=== PATIENT | female | born 1955 | race Caucasian/White ===

== ENCOUNTER → 2018-12-25 | Outpatient (CLI) | payer BC | END | disposition home or self-care (01) | LOC: PREOP 05:53 | PROVIDERS: ATTEND Specialist | DX: Z01.818 Encounter for other preprocedural examination (principal) ==

== ENCOUNTER 2019-01-01 07:25 | Day surgery (SDC) | payer BC ==
[~2019-01-01] VITALS: Ht 162 cm; Wt 90.9 kg
[~2019-01-01 07:25] MED LIST: ATEN50TA PO; LEVO112T55 PO; LEVO50TA6 PO
[2019-01-01] MEDS: TETRACAINE 0.5% OPHTH SOLN 4 ML BTL (SINGLE DOSE ONLY) OU PRN ×4 (07:40→08:06)
[2019-01-01 07:44] VITALS: BP 133/80
[2019-01-01] MEDS ORDERED: LIDOCAINE PF 1% 2 ML AMP IR PRN (07:45)
[2019-01-01] MEDS ORDERED: MOXIFLOXACIN OPHTH SOLN 5 MG/ML 0.3 ML SYRINGE OP ONE (07:45)
[2019-01-01] MEDS ORDERED: TIMOLOL MALEATE 0.5% 5 ML (TIMOPTIC) BTL OU PRN (07:45)
[2019-01-01] MEDS ORDERED: POVIDONE (BETADINE) OPHTH SOLN 5% 30 ML OP ONE (07:45)
[2019-01-01] MEDS: PHENYLEPHRINE 10% OPHTH (NEO-SYN) 5 ML BTL OU SCH ×3 (07:55→08:06)
[2019-01-01] MEDS: CYCLOPENTOLATE 1% (CYCLOGYL) 2 ML DROPS OP SCH ×3 (07:55→08:06)
[2019-01-01] MEDS ORDERED: MIDAZOLAM 2 MG/2 ML (VERSED) VIAL ONE (07:59)
--- NOTE | 2019-01-01 08:08 | Ophthalmologist Pre-Op Note ---
Pre-Operative Progress Note H&P Reviewed The H&P was reviewed, patient examined and no changes noted. Date H&P Reviewed: Jan 01, 2019 Time H&P Reviewed: 08:08 Pre-Op Dx Cataract, Right Eye ALBA ZHAO MD Jan 01, 2019 08:08 POS
[2019-01-01] MEDS ORDERED: acetaZOLAMIDE ER 500 MG CAP (DIAMOX SEQUELS) PO ONE (08:30)
--- NOTE | 2019-01-01 08:37 | Ophthalmology Operative Report ---
Cataract removal/placement IOL PREOPERATIVE DIAGNOSIS: Cataract Right Eye POSTOPERATIVE DIAGNOSIS: Cataract Right Eye PROCEDURE: Cataract removal and placement of posterior chamber implant, right eye SURGEON: Jun Zhao ANESTHESIA: Topical with sedation COMPLICATIONS: None ESTIMATED BLOOD LOSS: Minimal DESCRIPTION OF PROCEDURE: After proper informed consent was obtained, the patient, a 63 female, was taken to the Operating Room and the right eye was anesthetized with tetracaine. The right eye was then prepped and draped in the usual manner. A wire lid speculum was placed. A paracentesis was made at the left hand position. Preservative free lidocaine was injected into the anterior chamber followed by viscoelastic. A clear corneal incision was made in the temporal position. A capsulorrhexis was preformed and the central nuclear and cortical material were removed. The posterior capsule was polished and Samm 20.5 AU00T0 IOL was placed into the capsular bag. The residual viscoelastic was aspirated and balanced saline solution was injected into the anterior chamber. Moxifloxacin was injected into the anterior chamber. The wound was checked and found to be water tight. The patient tolerated the procedure well without complications. JUN ZHAO MD Jan 01, 2019 08:37 POS
[2019-01-01 08:45] VITALS: BP 126/84
--- NOTE | 2019-01-01 12:41 | Anesthesia-General Post-Op ---
MAC Patient Condition Mental Status/LOC: Same as Preop Cardiovascular: Satisfactory Nausea/Vomiting: Absent Respiratory: Satisfactory Pain: Controlled Complications: Absent Post Op Complications Complications None Follow Up Care/Instructions Patient Instructions None needed. Anesthesiology Discharge Order Discharge Order Patient is doing well, no complaints, stable vital signs, no apparent adverse anesthesia problems. No complications reported per nursing. RULA LIU CRNA Jan 01, 2019 12:41 POS
--- OUTSIDE RECORDS SUMMARY | 2019-01-24 21:24 | XMS REPORT | Continuity of Care Document ---
Author Organization Unknown POS Address Unknown SP Phone Unavailable SP Allergies Active Description Code Type Severity POS Reaction Onset Reported/Identified POS to Patient Clinical Status POS Yes codeine [id number] Drug Allergy Mild SP N/V 12/30/2018 SP Medications There is no data. 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, RIGHT EYE SP 01/01/2019 ALBA ZHAO MD Ot I10 SP (PRIMARY) HYPERTENSION SP 01/01/2019 ALBA ZHAO MD Ot Z80 .6 SP HISTORY OF LEUKEMIA SP 01/01/2019 ALBA ZHAO MD Ot Z88 .5 SP STATUS TO NARCOTIC AGENT STATUS SP 01/01/2019 ALBA ZHAO MD Ot Z90.49 SP ACQUIRED ABSENCE OF OTHER SPECIFIED PART SP 01/08/2019 ALBA ZHAO MD Ot E03 .9 SP UNSPECIFIED SP 01/08/2019 ALBA ZHAO MD Ot H25.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, RIGHT EYE SP 01/08/2019 ALBA ZHAO MD Ot I10 SP (PRIMARY) HYPERTENSION SP 01/08/2019 ALBA ZHAO MD Ot Z80 .6 SP HISTORY OF LEUKEMIA SP 01/08/2019 ALBA ZHAO MD Ot Z88 .5 SP STATUS TO NARCOTIC AGENT STATUS SP 01/08/2019 ALBA ZHAO MD Ot Z90.49 SP ACQUIRED ABSENCE OF OTHER SPECIFIED PART SP 01/14/2019 ALBA ZHAO MD Ot Z01.818 SP ENCOUNTER FOR OTHER PREPROCEDURAL EXAMIN SP 01/19/2019 ALBA ZHAO MD Ot E03 .9 SP UNSPECIFIED SP 01/19/2019 ALBA ZHAO MD Ot H25.12 SP AGE-RELATED NUCLEAR CATARACT, LEFT EYE SP 01/19/2019 ALBA ZHAO MD Ot Z80 .6 SP HISTORY OF LEUKEMIA SP 01/19/2019 ALBA ZHAO MD Ot Z90.49 SP ACQUIRED ABSENCE OF OTHER SPECIFIED PART SP Procedures There is no data. Results There is no data. Encounters ACCT No. Visit Date/Time Discharge Status POS Pt. Type Provider Facility Loc./Un it POS Complaint POS [id number] 01/15/2019 07:13:00 09:18:00 SP DIS Outpatient ALBA ZHAO MD Via [facility] CATARACT LEFT EYE SP [id number] 01/12/2019 05:39:00 14:57:00 SP DIS Outpatient ALBA ZHAO MD Via [facility] PREOP CATARACT LEFT EYE SP [id number] 01/01/2019 07:25:00 08:45:00 SP DIS Outpatient ALBA ZHAO MD Via [facility] CATARACT RIGHT EYE SP [id number] 12/25/2018 05:53:00 23:59:59 SP CLS Outpatient ALBA ZHAO MD Via [facility] PREOP CATARACT RIGHT EYE SP
== END 2019-01-01 08:45 | disposition home or self-care (01) ==
LOC: SDC 07:25
PROVIDERS: ATTEND Specialist
DX: H25.11 Age-related nuclear cataract, right eye (principal); E03.9 Hypothyroidism, unspecified; I10 Essential (primary) hypertension; Z88.5 Allergy status to narcotic agent; Z90.49 Acquired absence of other specified parts of digestive tract; Z80.6 Family history of leukemia

== ENCOUNTER 2019-01-12 05:39 | Outpatient (CLI) | payer BC ==
[~2019-01-12] VITALS: Ht 162 cm; Wt 90.9 kg
== END 2019-01-12 14:57 | disposition home or self-care (01) ==
LOC: PREOP 05:39
PROVIDERS: ATTEND Specialist
DX: Z01.818 Encounter for other preprocedural examination (principal)

== ENCOUNTER 2019-01-15 07:13 | Day surgery (SDC) | payer BC ==
[~2019-01-15] VITALS: Ht 162 cm; Wt 90.9 kg
[2019-01-15] MEDS ORDERED: LIDOCAINE PF 1% 2 ML AMP IR PRN (07:30)
[2019-01-15] MEDS ORDERED: MOXIFLOXACIN OPHTH SOLN 5 MG/ML 0.3 ML SYRINGE OP ONE (07:30)
[2019-01-15] MEDS ORDERED: POVIDONE (BETADINE) OPHTH SOLN 5% 30 ML OP ONE (07:30)
[2019-01-15] MEDS ORDERED: TIMOLOL MALEATE 0.5% 5 ML (TIMOPTIC) BTL OU PRN (07:30)
[2019-01-15] MEDS: TETRACAINE 0.5% OPHTH SOLN 4 ML BTL (SINGLE DOSE ONLY) OU PRN ×4 (07:35→08:01)
[2019-01-15 07:37] VITALS: BP 118/80
[2019-01-15 07:47] VITALS: BP 118/80
[2019-01-15] MEDS: CYCLOPENTOLATE 1% (CYCLOGYL) 2 ML DROPS OP SCH ×3 (07:51→08:01)
[2019-01-15] MEDS: PHENYLEPHRINE 10% OPHTH (NEO-SYN) 5 ML BTL OU SCH ×3 (07:51→08:01)
[2019-01-15] MEDS ORDERED: MIDAZOLAM 2 MG/2 ML (VERSED) VIAL ONE ×2 (08:05→09:01)
--- NOTE | 2019-01-15 08:15 | Ophthalmologist Pre-Op Note ---
Pre-Operative Progress Note H&P Reviewed The H&P was reviewed, patient examined and no changes noted. Date H&P Reviewed: Jan 15, 2019 Time H&P Reviewed: 08:15 Pre-Op Dx Cataract, Left Eye ALBA ZHAO MD Jan 15, 2019 08:15 POS
[2019-01-15] MEDS ORDERED: acetaZOLAMIDE ER 500 MG CAP (DIAMOX SEQUELS) PO ONE (08:30)
--- NOTE | 2019-01-15 09:11 | Ophthalmology Operative Report ---
Cataract removal/placement IOL PREOPERATIVE DIAGNOSIS: Cataract Left Eye POSTOPERATIVE DIAGNOSIS: Cataract Left Eye PROCEDURE: Cataract removal and placement of posterior chamber implant, left eye SURGEON: Jun Zhao ANESTHESIA: Topical with sedation COMPLICATIONS: None ESTIMATED BLOOD LOSS: Minimal DESCRIPTION OF PROCEDURE: After proper informed consent was obtained, the patient, a 63 female, was taken to the Operating Room and the left eye was anesthetized with tetracaine. The left eye was then prepped and draped in the usual manner. A wire lid speculum was placed. A paracentesis was made at the left hand position. Preservative free lidocaine was injected into the anterior chamber followed by viscoelastic. A clear corneal incision was made in the temporal position. A capsulorrhexis was preformed and the central nuclear and cortical material were removed. The posterior capsule was polished and an Samm 20.5 AU00T0 was placed into the capsular bag. The residual viscoelastic was aspirated and balanced saline solution was injected into the anterior chamber. Moxifloxacin was injected into the anterior chamber. The wound was checked and found to be water tight. The patient tolerated the procedure well without complications. JUN ZHAO MD Jan 15, 2019 09:11 POS
[2019-01-15 09:19] VITALS: BP 116/55
--- NOTE | 2019-01-15 13:05 | Anesthesia-General Post-Op ---
MAC Patient Condition Mental Status/LOC: Same as Preop Cardiovascular: Satisfactory Nausea/Vomiting: Absent Respiratory: Satisfactory Pain: Controlled Complications: Absent Post Op Complications Complications None Follow Up Care/Instructions Patient Instructions None needed. Anesthesiology Discharge Order Discharge Order Patient is doing well, no complaints, stable vital signs, no apparent adverse anesthesia problems. No complications reported per nursing. JACY MEAD CRNA Jan 15, 2019 13:05 POS
== END 2019-01-15 09:18 | disposition home or self-care (01) ==
LOC: SDC 07:13
PROVIDERS: ATTEND Specialist
DX: H25.12 Age-related nuclear cataract, left eye (principal); E03.9 Hypothyroidism, unspecified; Z80.6 Family history of leukemia; Z90.49 Acquired absence of other specified parts of digestive tract

== ENCOUNTER 2022-02-06 05:34 | Outpatient (CLI) | payer BC ==
[~2022-02-06] VITALS: Ht 162.5 cm; Wt 77.2 kg
[2022-02-07] MEDS ORDERED: ATEN25TA PO (14:07)
[2022-02-07] MEDS ORDERED: LEVO125C4 PO (14:07)
== END 2022-02-07 14:20 | disposition home or self-care (01) ==
LOC: PREOP 05:34
PROVIDERS: ATTEND Surgery
DX: Z01.818 Encounter for other preprocedural examination (principal)

== ENCOUNTER 2022-02-13 11:11 | Day surgery (SDC) | payer MEDICARE, OTHER ==
[2022-02-13] VITALS (11 sets, daily range): BP systolic 114–159; BP diastolic 53–89
[~2022-02-13] VITALS: Ht 162.5 cm; Wt 77.2 kg
[~2022-02-13 11:11] MED LIST changes: +ATEN25TA PO; +LEVO125C4 PO
[2022-02-13] MEDS ORDERED: SCOPOLAMINE 1.5 MG (TRANSDERM-SCOP) PATCH TOP ONE (12:00)
[2022-02-13] MEDS ORDERED: FAMOTIDINE 20MG/2ML IV (PEPCID) IV ONE (12:00)
[2022-02-13] MEDS ORDERED: ONDANSETRON 4 MG/2 ML (SDV) Z0FRAN IV ONE (12:00)
[2022-02-13] MEDS ORDERED: ceFAZolin INJECTION 2,000 MG ONE (12:11)
[2022-02-13] MEDS ORDERED: NS (IVPB) 50 ML ONE (12:11)
[2022-02-13] MEDS ORDERED: ceFAZolin INJECTION 2,000 MG in NS (IVPB) 50 ML IV ONE (12:30)
[2022-02-13] MEDS ORDERED: LACTATED RINGERS 1,000 ML IV PRN (12:30)
--- NOTE | 2022-02-13 13:45 | Progress Note-Pre Operative ---
Pre-Operative Progress Note Date H&P Reviewed: Feb 13, 2022 Time H&P Reviewed: 13:41 History & Physical: H&P Reviewed, Patient Examed, No changes noted Pre-Operative Diagnosis: Melanoma, Left elbow site marked LILIANA LEE DO Feb 13, 2022 13:45
[2022-02-13] MEDS ORDERED: LIDOCAINE PF 2% 5 ML (XYLOCAINE) VIAL ONE (13:51)
[2022-02-13] MEDS ORDERED: fentaNYL INJ 100 MCG/2 ML AMP ONE (13:51)
[2022-02-13] MEDS ORDERED: SEVOFLURANE (ULTANE) 15 ML INHAL SOLN ONE (13:51)
[2022-02-13] MEDS ORDERED: proPOfol 200 MG/20 ML (DIPRIVAN) VIAL IV ONE ×2 (13:51→15:42)
[2022-02-13] MEDS ORDERED: ONDANSETRON 4 MG/2 ML (SDV) Z0FRAN ONE (13:51)
[2022-02-13] MEDS ORDERED: MIDAZOLAM 2 MG/2 ML (VERSED) VIAL ONE (13:52)
[2022-02-13] MEDS ORDERED: BUP/EPI 0.25% 1:200,000 (MARCAINE) 30 ML VIAL ONE (14:31)
[2022-02-13] MEDS ORDERED: PROPOFOL INJECTION 50 ML IV ONE (15:42)
--- NOTE | 2022-02-13 16:01 | Anesthesia-General Post-Op ---
General Patient Condition Mental Status/LOC: Same as Preop Cardiovascular: Satisfactory Nausea/Vomiting: Absent Respiratory: Satisfactory Pain: Controlled Complications: Absent Post Op Complications Complications None Follow Up Care/Instructions Patient Instructions None needed. Anesthesia/Patient Condition Patient Condition Patient is doing well, no complaints, stable vital signs, no apparent adverse anesthesia problems. No complications reported per nursing. RULA LIU CRNA Feb 13, 2022 16:01
[2022-02-13] MEDS ORDERED: PROMETHAZINE INJ 25 MG/ML (PHENERGAN) AMP IVP ONE (16:15)
[2022-02-13] MEDS ORDERED: ONDANSETRON 4 MG/2 ML (SDV) Z0FRAN IVP PRN (16:15)
[2022-02-13] MEDS ORDERED: TRAM50TA3 PO (16:47)
[2022-02-13] MEDS ORDERED: ONDA4TAB11 SL (16:47)
--- NOTE | 2022-02-13 16:49 | Discharge Inst-Surgical ---
Discharge Inst-Surgical Depart Medication/Instructions New, Converted or Re-Newed RX: Transmitted to Pharmacy Patient Instructions Follow up Appt: Make appointment for 1 week. [phone] Instructions: No lifting greater than 20 pounds. No strenuous activity. May shower in 24 hours, no tub bath or soaking. Use incentive spirometer at home as directed. No Smoking Skin/Wound Care: May remove bandages in am. You need to leave the sutures in place and come in to the clinic to have them removed. Symptoms to Report: Appetite Changes, Extremity Discoloration, Numbness/Tingling, Swelling Increased, Bleeding Excessive, Eyesight Changes, Pain Increased, Urine Color Change, Constipation(Persistent), Fever over 101 degree F, Pain/Pressure in chest, Urinating Difficulty, Cough Up/Vomit Blood, Heart Beat Irreg/Pounding, Pain/Pressure in jaw, Cramps in feet or legs, Lightheadedness, Pain/Pressure in shoulder, Diarrhea(Persistent), Memory Changes Suddenly, Questions/Concerns, Weight gain consecutive days, Dizziness/Fainting, Nausea/Vomiting, Shortness of Breath, Weight gain over 2 pounds If questions or concerns contact your physician Or seek help at emergency department. Activity Activity as Tolerated: Yes Activity Instructions: Avoid Stress to Incision Driving Instructions: No Driving/Refer to Dr. Ni Discharge Diet: No Restrictions Diet After 24 Hours: Clear Liquid if Nauseous If Any Problems/Questions/Issu: Contact Your Physician, Go to Emergency Room Skin/Wound Care Infection Signs and Symptoms: Increased Redness, Foul Odor of Wound, Increased Drainage, Skin Itchy or Has a Rash, Increased Swelling, Temperature Above 101 F Bathing Instructions: Shower Stitches/[place]/Dermabond Dis: Care of Stitches LILIANA LEE DO Feb 13, 2022 16:49
--- NOTE | 2022-02-14 03:17 | OPERATIVE REPORT ---
DATE OF SERVICE: 02/13/2022 PREOPERATIVE DIAGNOSIS: Melanoma of left elbow. POSTOPERATIVE DIAGNOSIS: Melanoma of left elbow, pending pathology. PROCEDURE: Excision of melanoma, wide excision 2.8 cm x 7.2 cm. SURGEON: Uriel Amezcua DO TECHNICAL SALES ENGINEER: None. ANESTHESIA: LMA. SPECIMEN: Melanoma from left elbow with surrounding skin. Blood LOSS: Scant. FLUIDS: Per anesthesia. POSTOPERATIVE CONDITION: Stable. INDICATIONS FOR PROCEDURE: The patient is a 66-year-old female who had a biopsy performed on the left elbow, it turned out to be melanoma. She needed a wide excision, it was not deep enough that she needed sentinel node biopsy. FINDINGS: The patient had a melanoma just above the left elbow, removed with at least 1 cm margins. It measured 2.8 cm wide x about a 7.2 cm long. DESCRIPTION OF PROCEDURE: After informed consent was obtained, the patient was brought to the operating room. She was placed on the table in the right lateral decubitus position. Left arm was placed across the table. She was then sterilely prepped and draped in normal fashion. Local lidocaine was used to infiltrate the skin, had marked 1 cm to either side of the melanoma in a transverse direction and then lengthened it by 3 to be able to create a nice closure. This area was infiltrated with local and then made an incision with 15 blade, carried down through the skin into the subcutaneous tissue, had drawn on at this elliptical incision, carried down through the skin into the subcutaneous tissue was then deepened to subcutaneous tissue with Bovie electrocautery, going down and removed this en bloc, placed in one short stitch superiorly at the 12 o'clock position, 1 long stitch laterally at the 3 o'clock position. I then did some undermining of the skin just a little bit to be able to bring the edges together and then obtained hemostasis using Bovie electrocautery, closed the incision with 3-0 Prolene in standard vertical mattress suture and then a running baseball stitch to help keep the skin closed because it was an area of high use and stretching. Area was cleaned and dried. Dressing placed. The patient tolerated the procedure. Sponge and needle count correct at the end of the case. Job ID: [id number] DocumentID: [id number] Dictated Date: 02/13/2022 20:34:28 Cardiopulmonary Technologist Chief Date: 02/14/2022 03:14:00 Dictated By: URIEL AMEZCUA DO
== END 2022-02-13 17:50 | disposition home or self-care (01) ==
LOC: SDC 11:11
PROVIDERS: ATTEND Surgery
DX: C43.62 Malignant melanoma of left upper limb, including shoulder (principal); E66.9 Obesity, unspecified; Z68.29 Body mass index [BMI] 29.0-29.9, adult
CPT/HCPCS: 87081

== ENCOUNTER 2022-02-27 14:14 | Outpatient (RCR) | payer MEDICARE, OTHER ==
[~2022-02-27 14:14] MED LIST changes: +ONDA4TAB11 SL; +TRAM50TA3 PO
== END 2022-03-02 | disposition home or self-care (01) ==
LOC: ONC 14:14
PROVIDERS: ATTEND Internal Medicine Hematology & Oncology
DX: C43.62 Malignant melanoma of left upper limb, including shoulder (principal)
CPT/HCPCS: 99204

== ENCOUNTER 2022-05-21 13:10 | Outpatient (RCR) | payer MEDICARE, OTHER | END 2022-05-31 | disposition home or self-care (01) | LOC: ONC 13:10 | PROVIDERS: ATTEND Internal Medicine Hematology & Oncology | DX: C43.9 Malignant melanoma of skin, unspecified (principal) ==

== ENCOUNTER 2022-08-20 12:56 | Outpatient (RCR) | payer MEDICARE, OTHER | END 2022-08-30 | disposition home or self-care (01) | LOC: ONC 12:56 | PROVIDERS: ATTEND Internal Medicine Hematology & Oncology | DX: C43.9 Malignant melanoma of skin, unspecified (principal) ==

== ENCOUNTER 2022-10-01 17:06 | Emergency (ER) | payer MEDICARE, OTHER ==
[~2022-10-01] VITALS: Ht 162.6 cm; Wt 91.6 kg
[2022-10-01 17:20] VITALS: BP 141/83
--- NOTE | 2022-10-01 17:21 | ED GI ---
General Chief Complaint: Abdominal/GI Problems Stated Complaint: NO BOWEL MOVEMENT FOR 12 DAYS Source of Information: Patient History of Present Illness Date Seen by Provider: Oct 01, 2022 Time Seen by Provider: 17:09 Initial Comments 67-year-old female presenting with complaints of no bowel movement for 12 days. She is just started Victoza approximately 2 weeks ago. She has a remote history of bowel obstruction after surgery over 20 years ago. She has been taking stool softeners and was doing pre and probiotics but has not had a bowel movement for 12 days. She states that she is still passing some gas. She has no abdominal pain, no pain with urination, no vomiting. She was having some mild nausea today. She called the clinic to check in with them about her bowel movements and they advised her to go straight to the emergency department since they felt that she had a bowel obstruction. Associated Symptoms: No Back Pain, No Chest Pain, No Diaphoresis, No Fev er/Chills, No Fatigue, No Headache, No Heartburn, No Nausea/Vomiting, No Rash, No Shortness of Air, No Swelling/Mass in Abdomen, No Syncope, No Weakness Allergies and Home Medications Allergies Coded Allergies: codeine (Verified Allergy, Mild, N/V, 02/07/22) levofloxacin (Verified Allergy, Unknown, 02/13/22) EXTREME BURNING AND MADE VEINS BRIGHT RED, CAN TOLERATE PO LEVAQUIN- PER PATIENT Patient Home Medication List Home Medication List Reviewed: Yes Atenolol (Atenolol) 25 Mg Tablet, 25 MG PO BID, (Reported) Entered as Reported by: STEVEN KELLY on 02/07/22 140 Levothyroxine Sodium (Levothyroxine) 125 Mcg Capsule, 125 MCG PO DAILY, (Reported) Entered as Reported by: STEVEN KELLY on 02/07/22 1407 Ondansetron (Ondansetron Odt) 4 Mg Tab.rapdis, 4 MG SL Q4H PRN for NAUSEA/VOMITING Prescribed by: LILIANA LEE on 02/13/22 164 Tramadol HCl (Tramadol HCl) 50 Mg Tablet, 50 MG PO Q8H Prescribed by: LILIANA LEE on 02/13/22 164 Review of Systems Review of Systems Constitutional: No chills, No fever EENTM: No Symptoms Reported Respiratory: No Symptoms Reported Cardiovascular: No Symptoms Reported Gastrointestinal: Denies Abdomen Distended, Denies Abdominal Pain, Denies Blood Streaked Stools; Constipated; Denies Diarrhea, Denies Difficulty Swallowing; Nausea (just started today); Denies Poor Appetite, Denies Poor Fluid Intake, Denies Rectal Bleeding, Denies Vomiting Genitourinary: No Symptoms Reported Musculoskeletal: no symptoms reported Skin: no symptoms reported Psychiatric/Neurological: No Symptoms Reported Endocrine: No Symptoms Reported Past Qccayzc-Prtbhe-Bxakna Hx Immunizations Up To Date First/Initial COVID19 Vaccinat: 2020 Second COVID19 Vaccination Levi: 2021 Seasonal Allergies Seasonal Allergies: No Past Medical History Surgery/Hospitalization HX: Bowel obstruction after abdominal surgery in her 40s Surgeries: Yes Gallbladder, Thyroidectomy Respiratory: Yes Sleep Apnea Currently Using CPAP: No Currently Using BIPAP: No Cardiac: No Neurological: No Genitourinary: No Gastrointestinal: No Musculoskeletal: No Endocrine: No Hypothyroidsim HEENT: Yes (GLASSES) Cancer: Yes Melanoma What Type of Treatment Did You: Surgical Intervention Psychosocial: No Integumentary: Yes Recent Skin Changes Blood Disorders: Yes (HX OF BLOOD CLOT "DUE TO ANESTHESIA") Physical Exam Vital Signs Vital Signs - First Documented 10/01/22 17:20 Temp 36.3 Pulse 79 Resp 18 B/P (MAP) 141/83 (102) Pulse Ox 97 O2 Delivery Room Air Capillary Refill : Height/Weight/BMI Height: '" Weight: lbs. oz. kg; 29.23 BMI Method: General Appearance: WD/WN, no apparent distress Respiratory: chest non-tender, lungs clear, normal breath sounds, no respiratory distress, no accessory muscle use Cardiovascular: normal peripheral pulses, regular rate, rhythm Gastrointestinal: normal bowel sounds, non tender, soft, no pulsatile mass Neurologic/Psychiatric: alert, oriented x 3 Skin: normal color, warm/dry Progress/Results/Core Measures Results/Orders My Orders Orders - AYAKA PANCHAL MD Ct Abdomen/Pelvis Wo (10/01/22 17:11) Vital Signs/I&O 10/01/22 17:20 Temp 36.3 Pulse 79 Resp 18 B/P (MAP) 141/83 (102) Pulse Ox 97 O2 Delivery Room Air Progress Progress Note #1: Progress Note Potential diagnosis of constipation, bowel obstruction, slow transit constipatio n. Obtain noncontrast CT scan of the abdomen and pelvis to evaluate for how much stool is present and looking for fecal impaction or obstruction. Progress Note #2: Time: 17:28 Progress Note On my personal review and interpretation of the CT scan of the abdomen and pelvis without IV contrast I did not appreciate any acute bowel obstruction. She had increased stool and gas throughout her bowels. There was also no rectal fecal impaction. Awaiting radiology over read on the CT scan but will likely recommend stimulant laxatives since she has already been trying prebiotic's, probiotics, prunes, prune juice, increase fiber and stool softeners without having a bowel movement. 1746 I have reviewed the radiologist report on the CT scan abdomen pelvis without contrast. The agreed she had moderate to large amount of stool load for constipation but did not show obstruction or mass. Will discharge to home and encourage patient to try taking MiraLAX or a stimulant laxative to help get her bowels to move. She could take the MiraLAX 17 g mixed in 8 ounces of juice or water drink of her choice at least once a day. She could also continue to do that. Probiotics as well as increased fiber. Counseled to check back with the clinic if continuing to have concerns. Diagnostic Imaging Diagonstic Imaging: CT Plain Films/CT/US/NM/MRI: abdomen, pelvis Comments NAME: KAYCEE VILLANUEVA [facility] REC#: [id number] PT STATUS: REG ER : 1955 PHYSICIAN: AYAKA PANCHAL MD ADMIT DATE: 10/01/22/ER FS Draft Date of Exam:10/01/22 CT ABDOMEN/PELVIS WO PROCEDURE: CT abdomen and pelvis without contrast. TECHNIQUE: Multiple contiguous axial images were obtained through the abdomen and pelvis without the use of intravenous contrast. Auto Exposure Controls were utilized during the CT exam to meet ALARA standards for radiation dose reduction. INDICATION: Constipation. No prior studies are available for comparison. FINDINGS: Lung bases are clear of acute infiltrates. The liver is unremarkable. Gallbladder is surgically absent. There is no biliary ductal dilatation. The pancreas and spleen are unremarkable. No adrenal mass is detected. No renal calculi are seen. There is no hydronephrosis. Low-attenuation lesion in the lower pole of the left kidney is too small to characterize but may represent a cyst. The aorta is nonaneurysmal. The small and large bowel loops are nonobstructed. There is moderate stool in the colon. The appendix is visualized in the right lower quadrant and appears unremarkable. No free fluid or fluid collection is seen. The uterus and bladder are unremarkable. IMPRESSION: Moderate stool load in the colon, correlate for constipation. The study is otherwise unremarkable. Dictated on workstation # [id number] Dict: 10/01/22 173 Trans: 10/01/221736 [id number] Interpreted by: TAMMI CHUNG MD Electronically signed by: Reviewed: Reviewed by Me Departure Impression Primary Impression: Constipation due to slow transit Disposition: HOME, SELF-CARE Condition: Stable Departure-Patient Inst. Decision time for Depature: 17:48 Referrals: KATHIE GONZALES APRN (PCP/Family) Primary Care Physician Patient Instructions: Constipation, Adult ED, Dealing with Constipation from the Drugs You Take Add. Discharge Instructions: Stay well hydrated and make sure you are drinking enough water and electrolyte drinks. Take stimulant laxative such as Miralax 17 grams or 1 capful mixed in 8 ounces of juice or water or liquid of your choice. Take at least once a day to help stimulate your bowels to move. All discharge instructions reviewed with patient and/or family. Voiced understanding. AYAKA PANCHAL MD Oct 01, 2022 17:21
--- NOTE | 2022-10-01 17:37 | Diagnostic Imaging Report ---
PROCEDURE: CT abdomen and pelvis without contrast. TECHNIQUE: Multiple contiguous axial images were obtained through the abdomen and pelvis without the use of intravenous contrast. Auto Exposure Controls were utilized during the CT exam to meet ALARA standards for radiation dose reduction. INDICATION: Constipation. No prior studies are available for comparison. FINDINGS: Lung bases are clear of acute infiltrates. The liver is unremarkable. Gallbladder is surgically absent. There is no biliary ductal dilatation. The pancreas and spleen are unremarkable. No adrenal mass is detected. No renal calculi are seen. There is no hydronephrosis. Low-attenuation lesion in the lower pole of the left kidney is too small to characterize but may represent a cyst. The aorta is nonaneurysmal. The small and large bowel loops are nonobstructed. There is moderate stool in the colon. The appendix is visualized in the right lower quadrant and appears unremarkable. No free fluid or fluid collection is seen. The uterus and bladder are unremarkable. IMPRESSION: Moderate stool load in the colon, correlate for constipation. The study is otherwise unremarkable. Dictated by: Dictated on workstation # [id number]
== END 2022-10-01 17:55 | disposition home or self-care (01) ==
LOC: EDUNIT# 17:06 → ER FS 17:08
DX: K59.01 Slow transit constipation (principal); Z98.890 Other specified postprocedural states
CPT/HCPCS: 74176

== ENCOUNTER 2023-01-15 06:22 | Outpatient (CLI) | payer MEDICARE, OTHER ==
[~2023-01-15] VITALS: Ht 162.6 cm; Wt 84.8 kg
[2023-01-15] MEDS ORDERED: LIRA0.6P SQ (13:33)
== END 2023-01-15 13:50 | disposition home or self-care (01) ==
LOC: PREOP 06:22
PROVIDERS: ATTEND Surgery
DX: Z01.818 Encounter for other preprocedural examination (principal)

== ENCOUNTER 2023-01-27 07:35 | Day surgery (SDC) | payer MEDICARE, OTHER ==
[~2023-01-27] VITALS: Ht 162.6 cm; Wt 84.8 kg
[~2023-01-27 07:35] MED LIST changes: +LIRA0.6P SQ
[2023-01-27] MEDS ORDERED: LACTATED RINGERS 1,000 ML 1,000 ML IV STA (07:42)
[2023-01-27 07:50] VITALS: BP 135/90
[2023-01-27] MEDS ORDERED: MIDAZOLAM INJ 2 MG/2 ML VIAL ONE (08:21)
--- NOTE | 2023-01-27 08:28 | Progress Note-Pre Operative ---
Pre-Operative Progress Note Date of Available H&P: Jan 14, 2023 Date H&P Reviewed: Jan 27, 2023 Time H&P Reviewed: 08:24 History & Physical: H&P Reviewed, Patient Examed, No changes noted Pre-Operative Diagnosis: LILIANA Diaz DO Jan 27, 2023 08:28
--- NOTE | 2023-01-27 09:19 | Progress Note-Post Operative ---
Post-Operative Progess Note Surgeon (s)/Bridge Design Engineer (s) Surgeon LILIANA LEE DO Bridge Design Engineer: none Pre-Operative Diagnosis Screening Post-Operative Diagnosis Polyp Diverticula Int hemorrhoids Procedure & Operative Findings Date of Procedure 01/27/23 Procedure Performed/Findings Colonoscopy with hot biopsy PROCEDURE NOTE: After informed consent was obtained, the patient was brought to the endoscopy suite, placed in bed in left lateral decubitus position. She was administered IV sedation by the CARPET JOURNEYMAN who then monitored her vitals the entire time, heart rate, blood pressure and pulse ox and the scope was inserted, pushed in and in the descending colon saw some early diverticula and took a picture. I then pushed all the way to about 130 cm and pushed into the cecum, took a picture of the appendiceal orifice and noted the ileocecal valve. Then slowly withdrew the scope insufflating to look circumferentially at the gomez starting in the cecum, up the ascending colon to the hepatic flexure, then down the transverse colon to the splenic flexure and into the descending colon. I found a small flat polyp here and elected to do a hot biopsy of the polyp. Continued down into the sigmoid and then into the rectal vault and retroflexed the scope. Took a picture of the internal hemorrhoids. The patient tolerated the procedure. She was recovered in endoscopy suite. Recommended for repeat colonoscopy in 5 years. Anesthesia Type IV sedation by CARPET JOURNEYMAN Estimated Blood Loss Estimated blood loss (mL): scant Specimens/Packing Specimens Removed Desc colon polyp bx LILIANA LEE DO Jan 27, 2023 09:19
[2023-01-27 09:20] VITALS: BP 80/47
--- NOTE | 2023-01-27 09:20 | Endoscopy Discharge Instruct ---
Endo Procedure/Findings Findings 1.: Polyp 2.: Diverticulosis 3.: Internal Hemorrhoids Discharge Instructions - Activity: You might feel a little sleepy until tomorrow. This is due to the medicine you received to relax you. Until tomorrow, you should: NOT drive a car, operate machinery or power tools. NOT drink any alcoholic beverages. NOT make any important decisions or sign importortant papers. Do not return to work until tomorrow, unless otherwise instructed. Resume previous activities tomorrow. Diet: Start by taking liquids. If you tolerate liquids, advance to solid food. 1.: Colonscopy in 5 years Notify Physician - If you experience excessive bleeding, unusual abdominal pain, fever, or chest pain, contact your doctor immediately. Follow-Up: Other Follow up in my office in one week LILIANA LEE DO Jan 27, 2023 09:20
[2023-01-27 09:25] VITALS: BP 91/52
[2023-01-27 09:30] VITALS: BP 95/54
[2023-01-27 10:20] VITALS: BP 95/54
--- NOTE | 2023-01-27 11:34 | Anesthesia-General Post-Op ---
MAC Patient Condition Mental Status/LOC: Same as Preop Cardiovascular: Satisfactory Nausea/Vomiting: Absent Respiratory: Satisfactory Pain: Controlled Complications: Absent Post Op Complications Complications None Follow Up Care/Instructions Patient Instructions None needed. Anesthesiology Discharge Order Discharge Order Patient is doing well, no complaints, stable vital signs, no apparent adverse anesthesia problems. No complications reported per nursing. LAMAR JONES CRNA Jan 27, 2023 11:34
== END 2023-01-27 10:10 | disposition home or self-care (01) ==
LOC: ENDO 07:35
PROVIDERS: ATTEND Surgery
DX: Z12.11 Encounter for screening for malignant neoplasm of colon (principal); K63.5 Polyp of colon; K63.89 Other specified diseases of intestine; K57.30 Diverticulosis of large intestine without perforation or abscess without bleeding; K64.4 Residual hemorrhoidal skin tags
CPT/HCPCS: 88305